=== PATIENT | female | born 1940 | race Caucasian/White ===

== ENCOUNTER 2017-10-17 17:24 | Emergency (ER) | payer BC, OTHER ==
[~2017-10-17] VITALS: Ht 157.5 cm; Wt 78.1 kg
[2017-10-17 17:30] VITALS: TEMP 36.9; Ht 157.5 cm; Wt 78.1 kg
[2017-10-17] MEDS ORDERED: ONDANSETRON INJ 2 MG/ML 2 ML VIAL IV STA (17:45)
[2017-10-17] MEDS ORDERED: SODIUM CHLORIDE 0.9% 1000ML 1,000 ML IV STA (17:45)
[2017-10-17 18:06] LABS: BASO % 0.5 %; BASO ABS # 0.04 K/uL (0-0.2); EOS % 0.4 %; EOS ABS # 0.03 K/uL (0-0.5); HEMATOCRIT 45.5 % (37-47); HEMOGLOBIN 16.4 g/dL (12.0-16.0); IG# 0.02 K/uL (0.00-0.02); LYMPH % 15.5 %; LYMPH ABS # 1.16 K/uL (1.2-3.4); MEAN CELL VOLUME 86.7 fL (80-100); MEAN CORPUSCULAR HEMOGLOBIN 31.2 pg (25-34); MEAN PLATELET VOLUME 9.6 fL (7.4-10.4); MONO % 11.5 %; MONO ABS # 0.86 K/uL (0.11-0.59); NEUT % 71.8 %; NEUT ABS # 5.39 K/uL (1.4-6.5); PLATELET COUNT 141 K/uL (130-400); RED CELL DISTRIBUTION WIDTH CV 13.4 % (11.5-14.5); RED CELL DISTRIBUTION WIDTH SD 42.6 fL (36.4-46.3)
--- NOTE | 2017-10-17 18:06 | DIAGNOSTIC IMAGING REPORT ---
CHEST ONE VIEW PORTABLE HISTORY: Atypical chest pain. COMPARISON: None. FINDINGS: The lungs are clear. Cardiac silhouette is normal in size. No pleural effusions. No pneumothorax. IMPRESSION: No acute process. Electronically signed by: Jarad Orozco M.D. 10/17/2017 6:05 PM Dictated Date/Time: 10/17/2017 6:03 PM
[2017-10-17] MEDS ORDERED: SODIUM CHLORIDE 0.9% 500ML 500 ML IV STA (18:20)
[2017-10-17 18:28] LABS: ALBUMIN 3.9 gm/dl (3.4-5.0); ALKALINE PHOSPHATASE 67 U/L (45-117); ALT/SGPT 39 U/L (12-78); AST/SGOT 33 U/L (15-37); BLOOD UREA NITROGEN 27 mg/dl (7-18); CALCIUM 9.1 mg/dl (8.5-10.1); CARBON DIOXIDE 25 mmol/L (21-32); CREATININE 1.29 mg/dl (0.60-1.20); GLUCOSE 113 mg/dl (70-99); LIPASE 205 U/L (73-393); POTASSIUM 3.5 mmol/L (3.5-5.1); SODIUM 130 mmol/L (136-145); TOTAL PROTEIN 8.5 gm/dl (6.4-8.2)
[2017-10-17] MEDS ORDERED: OPTIRAY 320 IV PRN ×2 (19:15→20:15)
--- NOTE | 2017-10-17 19:53 | DIAGNOSTIC IMAGING REPORT ---
ABDOMEN AND PELVIS CT WITH IV CONTRAST CT DOSE: 466.15 mGy.cm HISTORY: Generalized abdominal pain with nausea and vomiting. TECHNIQUE: Multiaxial CT images of the abdomen and pelvis were performed following the use of intravenous contrast. A dose lowering technique was utilized adhering to the principles of ALARA. COMPARISON STUDY: None. FINDINGS: The lung bases are clear. No pneumoperitoneum. No pneumatosis. No suspicious lytic or blastic osseous lesions. Borderline enlarged anterior pericardial lymph node measuring 8 mm. The liver, gallbladder, pancreas, spleen, adrenal glands, and right kidney are unremarkable. There are few hypodense lesions within the left kidney with the largest measuring 13 mm. These favor cysts. No hydronephrosis. The bladder, uterus, and bilateral adnexa are unremarkable. Dextroscoliosis of the lumbar spine. A few mildly enlarged periportal lymph nodes. Dominant lymph node measures 2.1 cm. A few prominent retroperitoneal lymph nodes the largest measuring 2.5 x 1.0 cm. Normal caliber abdominal aorta. A few colonic diverticula. No bowel wall thickening or obstruction. Normal appendix. IMPRESSION: 1. No bowel wall thickening or obstruction. 2. A few mildly enlarged periportal and retroperitoneal lymph nodes. There is also a prominent anterior pericardial lymph node. These are of uncertain clinical significance. A low-grade lymphoproliferative disorder cannot be excluded 3. Normal appendix. 4. Colonic diverticulosis. Electronically signed by: Jarad Orozco M.D. 10/17/2017 7:52 PM Dictated Date/Time: 10/17/2017 7:44 PM
--- NOTE | 2017-10-17 20:42 | DIAGNOSTIC IMAGING REPORT ---
CHEST CTA for PULMONARY ARTERIES CT DOSE: 347.72 mGy.cm HISTORY: Positive d-dimer. Atypical chest pain. TECHNIQUE: Multiaxial CT images of the chest were performed following the intravenous administration of contrast to evaluate the pulmonary arteries. Maximal intensity projection images were also obtained. A dose lowering technique was utilized adhering to the principles of ALARA. COMPARISON STUDY: Chest 10/17/2017. FINDINGS: Normal caliber thoracic aorta with no evidence for dissection. The heart is normal in size. No pleural or pericardial effusions. No filling defects within the pulmonary arteries to suggest pulmonary embolus. A 1 cm right thyroid nodule. Subcentimeter hilar lymph nodes do not meet CT criteria for pathologic involvement. There are a few mildly enlarged mediastinal lymph nodes. Dominant peritracheal lymph node measures 12 mm. Prominent anterior pericardial lymph node measuring 8 mm is again noted. No suspicious lytic or blastic osseous lesions. No pneumothorax. The central airways are patent. The lungs are clear. IMPRESSION: 1. No evidence for pulmonary embolus. 2. A few mildly enlarged mediastinal lymph nodes. Electronically signed by: Jarad Orozco M.D. 10/17/2017 8:41 PM Dictated Date/Time: 10/17/2017 8:33 PM
[2017-10-17] MEDS ORDERED: ONDA4TAB46 PO (21:12)
[2017-10-17 21:17] VITALS: BP 165/91; PULSE 84; O2SAT 99
[2017-10-17] MEDS ORDERED: SIMV10TA5 PO (21:19)
[2017-10-17] MEDS ORDERED: LISI-461 PO (21:19)
[2017-10-17] MEDS ORDERED: CHOL1000 PO (21:19)
[2017-10-17] MEDS ORDERED: METO50TA8 PO (21:19)
[2017-10-17] MEDS ORDERED: OMEG10007 PO (21:19)
--- NOTE | 2017-10-17 22:15 | EMERGENCY ROOM VISIT NOTE ---
History Report prepared by Ashokibzoe: Dede Taylor Under the Supervision of: [place]. First contact with patient: 17:34 Chief Complaint: OTHER COMPLAINT Stated Complaint: LOW BP,VOMITING,L SHOULDER AND ARM PAIN History of Present Illness The patient is a 77 year old female who presents to the Emergency Room with complaints of intermittent weakness associated with nausea.. She also complains of cold sweats, nausea, dry heaving, and low blood pressure. She states "I just haven't felt good" for the past 3 days. Before coming to the ED this evening, she had 1 episode of diarrhea. She has not eaten much in the past 3 days because of a decreased appetite. She has also experienced diffuse body aches "all over". She has experienced no pain with swallowing. She notes that over the past several years she has had left upper jaw pain which comes and goes about every other day if not more frequently. This does radiate into her neck. She also had this today but notes that this is not new and is unchanged in any way. She denies adamantly on multiple occasions any chest pain or shortness of breath. Pt denies headache, change in vision, fevers, cough or cold symptoms, sore throat, chest pain, shortness of breath, vomiting, pain with urination, open wounds or sores, rashes and melena. 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 A total of 10 systems reviewed and were otherwise negative. Past Medical & Surgical Medical Problems: (1) History of breast cancer Surgical Problems: (1) H/O partial mastectomy Social History Smoking Status: Never Smoker Alcohol Use: occasionally Drug Use: none Marital Status: Housing Status: lives with family Occupation Status: retired Current/Historical Medications Scheduled Cholecalciferol (Vitamin D3), 1 TAB PO DAILY Metoprolol Succ (Toprol Xl) (Toprol-Xl), 1 TAB PO DAILY Simvastatin (Zocor), 1 TAB PO HS Scheduled PRN Ondansetron Hcl (Zofran), 4 MG PO TID PRN for Nausea Miscellaneous Medications Fish Oil (Ranchita-3), 1 CAP PO Lisinopril (Zestril), 10 MG PO Physical Exam Vital Signs Date Time Temp Pulse Resp B/P (MAP) Pulse Ox O2 Delivery O2 Flow Rate FiO2 10/17/17 21:17 84 22 165/91 99 Room Air 10/17/17 19:36 74 16 144/81 96 Room Air 10/17/17 18:05 73 18 127/67 96 Room Air 10/17/17 18:00 77 10/17/17 17:30 36.9 79 18 120/69 99 Room Air Physical Exam GENERAL: Sitting up in bed, alert, well appearing, well nourished, no distress, non-toxic EYE EXAM: normal conjunctiva. OROPHARYNX: no exudate, no erythema, lips, buccal mucosa, and tongue normal and mucous membranes are moist NECK: supple, no nuchal rigidity, no adenopathy, non-tender LUNGS: Clear to auscultation. Normal chest wall mechanics HEART: no murmurs, S1 normal and S2 normal ABDOMEN: abdomen soft, non-tender, normo-active bowel sounds, no masses, no rebound or guarding. BACK: Back is symmetrical on inspection and there is no deformity, no midline tenderness, no CVA tenderness. SKIN: no rashes and no bruising UPPER EXTREMITIES: upper extremities are grossly normal. LOWER EXTREMITIES: No pitting edema. NEURO EXAM: Normal sensorium, cranial nerves II-XII grossly intact, normal speech, no gross weakness of arms, no gross weakness of legs. Gross sensation intact. Medical Decision & Procedures ER Provider Diagnostic Interpretation: Radiology results as stated below per my review and the radiologist's interpretation: CHEST CTA for PULMONARY ARTERIES CT DOSE: 347.72 mGy.cm HISTORY: Positive d-dimer. Atypical chest pain. TECHNIQUE: Multiaxial CT images of the chest were performed following the intravenous administration of contrast to evaluate the pulmonary arteries. Maximal intensity projection images were also obtained. A dose lowering technique was utilized adhering to the principles of ALARA. COMPARISON STUDY: Chest 10/17/2017. FINDINGS: Normal caliber thoracic aorta with no evidence for dissection. The heart is normal in size. No pleural or pericardial effusions. No filling defects within the pulmonary arteries to suggest pulmonary embolus. A 1 cm right thyroid nodule. Subcentimeter hilar lymph nodes do not meet CT criteria for pathologic involvement. There are a few mildly enlarged mediastinal lymph nodes. Dominant peritracheal lymph node measures 12 mm. Prominent anterior pericardial lymph node measuring 8 mm is again noted. No suspicious lytic or blastic osseous lesions. No pneumothorax. The central airways are patent. The lungs are clear. IMPRESSION: 1. No evidence for pulmonary embolus. 2. A few mildly enlarged mediastinal lymph nodes. Electronically signed by: Jarad Orozco M.D. 10/17/2017 8:41 PM ABDOMEN AND PELVIS CT WITH IV CONTRAST CT DOSE: 466.15 mGy.cm HISTORY: Generalized abdominal pain with nausea and vomiting. TECHNIQUE: Multiaxial CT images of the abdomen and pelvis were performed following the use of intravenous contrast. A dose lowering technique was utilized adhering to the principles of ALARA. COMPARISON STUDY: None. FINDINGS: The lung bases are clear. No pneumoperitoneum. No pneumatosis. No suspicious lytic or blastic osseous lesions. Borderline enlarged anterior pericardial lymph node measuring 8 mm. The liver, gallbladder, pancreas, spleen, adrenal glands, and right kidney are unremarkable. There are few hypodense lesions within the left kidney with the largest measuring 13 mm. These favor cysts. No hydronephrosis. The bladder, uterus, and bilateral adnexa are unremarkable. Dextroscoliosis of the lumbar spine. A few mildly enlarged periportal lymph nodes. Dominant lymph node measures 2.1 cm. A few prominent retroperitoneal lymph nodes the largest measuring 2.5 x 1.0 cm. Normal caliber abdominal aorta. A few colonic diverticula. No bowel wall thickening or obstruction. Normal appendix. IMPRESSION: 1. No bowel wall thickening or obstruction. 2. A few mildly enlarged periportal and retroperitoneal lymph nodes. There is also a prominent anterior pericardial lymph node. These are of uncertain clinical significance. A low-grade lymphoproliferative disorder cannot be excluded 3. Normal appendix. 4. Colonic diverticulosis. Electronically signed by: Jarad Orozco M.D. 10/17/2017 7:52 PM CHEST ONE VIEW PORTABLE HISTORY: Atypical chest pain. COMPARISON: None. FINDINGS: The lungs are clear. Cardiac silhouette is normal in size. No pleural effusions. No pneumothorax. IMPRESSION: No acute process. Electronically signed by: Jarad Orozco M.D. 10/17/2017 6:05 PM Laboratory Results 10/17/17 17:50 Red Blood Count 5.25, Mean Corpuscular Volume 86.7, Mean Corpuscular Hemoglobin 31.2, Mean Corpuscular Hemoglobin Concent 36.0, Mean Platelet Volume 9.6, Neutrophils (%) (Auto) 71.8, Lymphocytes (%) (Auto) 15.5, Monocytes (%) (Auto) 11.5, Eosinophils (%) (Auto) 0.4, Basophils (%) (Auto) 0.5, Neutrophils # (Auto ) 5.39, Lymphocytes # (Auto) 1.16, Monocytes # (Auto) 0.86, Eosinophils # (Auto ) 0.03, Basophils # (Auto) 0.04 10/17/17 17:50 Test 10/17/17 17:50 10/17/17 19:25 White Blood Count 7.50 K/uL (4.8-10.8) Red Blood Count 5.25 M/uL (4.2-5.4) Hemoglobin 16.4 g/dL (12.0-16.0) Hematocrit 45.5 % (37-47) Mean Corpuscular Volume 86.7 fL (80-100) Mean Corpuscular Hemoglobin 31.2 pg (25-34) Mean Corpuscular Hemoglobin Concent 36.0 g/dl (32-36) Platelet Count 141 K/uL (130-400) Mean Platelet Volume 9.6 fL (7.4-10.4) Neutrophils (%) (Auto) 71.8 % Lymphocytes (%) (Auto) 15.5 % Monocytes (%) (Auto) 11.5 % Eosinophils (%) (Auto) 0.4 % Basophils (%) (Auto) 0.5 % Neutrophils # (Auto) 5.39 K/uL (1.4-6.5) Lymphocytes # (Auto) 1.16 K/uL (1.2-3.4) Monocytes # (Auto) 0.86 K/uL (0.11-0.59) Eosinophils # (Auto) 0.03 K/uL (0-0.5) Basophils # (Auto) 0.04 K/uL (0-0.2) RDW Standard Deviation 42.6 fL (36.4-46.3) RDW Coefficient of Variation 13.4 % (11.5-14.5) Immature Granulocyte % (Auto) 0.3 % Immature Granulocyte # (Auto) 0.02 K/uL (0.00-0.02) D-Dimer 1710 ug/L FEU (0-500) Anion Gap 10.0 mmol/L (3-11) Est Creatinine Clear Calc Drug Dose 36.5 ml/min Estimated GFR () 46.9 Estimated GFR (Non- 40.5 BUN/Creatinine Ratio 20.5 (10-20) Calcium Level 9.1 mg/dl (8.5-10.1) Total Bilirubin 0.9 mg/dl (0.2-1) Direct Bilirubin 0.3 mg/dl (0-0.2) Aspartate Amino Transf (AST/SGOT) 33 U/L (15-37) Alanine Aminotransferase (ALT/SGPT) 39 U/L (12-78) Alkaline Phosphatase 67 U/L (45-117) Troponin I < 0.015 ng/ml (0-0.045) Total Protein 8.5 gm/dl (6.4-8.2) Albumin 3.9 gm/dl (3.4-5.0) Lipase 205 U/L (73-393) Urine Color YELLOW Urine Appearance CLEAR (CLEAR) Urine pH 5.5 (4.5-7.5) Urine Specific [place] 1.027 (1.000-1.030) Urine Protein NEG (NEG) Urine Glucose (UA) NEG (NEG) Urine Ketones NEG (NEG) Urine Occult Blood 1+ (NEG) Urine Nitrite NEG (NEG) Urine Bilirubin NEG (NEG) Urine Urobilinogen NEG (NEG) Urine Leukocyte Esterase NEG (NEG) Urine WBC (Auto) 1-5 /hpf (0-5) Urine RBC (Auto) 0-4 /hpf (0-4) Urine Hyaline Casts (Auto) 1-5 /lpf (0-5) Urine Epithelial Cells (Auto) 5-10 /lpf (0-5) Urine Bacteria (Auto) NEG (NEG) Laboratory results per my review. Medications Administered Medications (Trade) Dose Ordered Sig/Merry Route Start Time Stop Time Status Last Admin Dose Admin Sodium Chloride 1,000 ml @ 999 mls/hr Q1H1M STAT IV 10/17/17 17:45 10/17/17 18:45 DC 10/17/17 17:45 999 MLS/HR Ondansetron HCl (Zofran Inj) 4 mg NOW STAT IV 5/20/18 17:45 10/17/17 17:48 DC 10/17/17 18:04 4 MG Sodium Chloride 500 ml @ 999 mls/hr Q31M STAT IV 10/17/17 18:20 10/17/17 18:50 DC 10/17/17 18:32 999 MLS/HR ECG Per My Interpretation Indication: other (jaw pain) Rate (beats per minute): 78 Rhythm: sinus rhythm Findings: left axis deviation, other (poor baseline, no PVC) Change: 2nd EKG on 10/17/2017: Sinus rhythm, rate of 69, left axis deviation, no ectopy, unchanged from previous EKG ED Course ED COURSE: Vital signs were reviewed and showed normal vitals The patients medical record was reviewed The above diagnostic studies were performed and reviewed. ED treatments and interventions as stated above. 1739: The patient was evaluated in room C7. A complete history and physical examination was performed. 1745: Zofran 4 mg IV, NSS 1000 ml @ 999 mls/hr IV. 0: NSS 500 ml @ 999 mls/hr IV. 0: I reevaluated the patient. She is feeling better and states the jaw pain that she experiences radiates to her neck and she has experienced it every day for the past several years. 2114: Upon reevaluation, the patient is feeling much better. I discussed my findings with the patient and she understands and agrees with the treatment plan. Based on the patients age, coexisting illnesses, exam and lab findings the decision to treat as an outpatient was made. The patient remained stable while under my care. The patient appeared well at the time of discharge. Medical Decision Differential diagnoses includes but is not limited to gastritis, peptic ulcer disease, GERD, gallbladder disease, pancreatitis, small bowel obstruction, acute coronary syndrome, pericarditis, ischemic bowel, irritable bowel disease, irritable bowel syndrome, appendicitis, diverticulitis, malignancy, hernia, urinary tract infection, torsion, /ectopic , perforation, trauma, infectious. Patient is a 77-year-old female who presents the ER for weakness and not feeling well. CBC was unremarkable. BMP with mild hyponatremia. LFTs, bilirubin and troponin was normal. Lipase is normal. UA was negative. CT was ordered due to the vomiting and mild abdominal discomfort. This was performed and was unremarkable prior to the result of d-dimer. When this came back she was sent back over for CT PE which was negative. Did show some slightly enlarged lymph nodes. I did note that this could be a lymphoproliferative disease and updated patient at bedside. I noted that this needs to be followed up within the next 2-3 days. Patient was updated at bedside in regards to this. Troponins were negative 2. EKG is unchanged 2. Patient has no other complaints. No other signs of infection. She is updated at bedside. Discharge follow-up with PCP as an outpatient. Discussed with Pt concerning signs and symptoms to watch out for. Pt was instructed to follow up with their PCP and discussed with the patient their option to return to the ED at anytime for persistent or worsening symptoms. The appropriate anticipatory guidance and out-patient management, including indications for return to the emergency department, were explained at length to the patient and understood. Medication Reconcilliation Current Medication List: was personally reviewed by me Blood Pressure Screening Patient's blood pressure: Elevated blood pressure Blood pressure disposition: Elevated BP felt to be situational Impression Primary Impression: Weakness Additional Impression: Lymph nodes enlarged Scribe Attestation The scribe's documentation has been prepared under my direction and personally reviewed by me in its entirety. I confirm that the note above accurately reflects all work, treatment, procedures, and medical decision making performed by me. Departure Information Dispostion Home / Self-Care Prescriptions Ondansetron Hcl (ZOFRAN) 4 Mg Tab 4 MG PO TID Y for Nausea, #20 TAB Prov: Jeffery Barton, DO 10/17/17 Referrals No Doctor, Assigned (PCP) Patient Instructions ED Weakness Jeannette LORENZO [facility] Additional Instructions Please follow up with your primary care doctor with in the next 24 hours. Any worsening of your symptoms, please return to the ED immediately. This includes any fevers greater than 100.4, worsening pain, chest pain, shortness breath, persistent nausea, vomiting, unable to eat or drink, or any other concerning signs or symptoms from your standpoint. Please take Zofran as needed for nausea and vomiting. Problem Qualifiers
== END 2017-10-17 21:34 | disposition home or self-care (01) ==
LOC: C.EDB 17:25 → C.EDC 21:34
DX: R53.1 Weakness (principal); R59.9 Enlarged lymph nodes, unspecified; E87.1 Hypo-osmolality and hyponatremia; Z85.3 Personal history of malignant neoplasm of breast; Z90.10 Acquired absence of unspecified breast and nipple; Z79.899 Other long term (current) drug therapy